=== PATIENT | female | born 1995 | race Caucasian/White ===

== ENCOUNTER 2021-07-31 17:30 | Emergency (ER) | payer BC ==
[2021-07-31 18:48] LABS: CORONAVIRUS COVID-19 NAA NEGATIVE (NEGATIVE); INFLUENZA A NAA NEGATIVE (NEGATIVE); INFLUENZA B NAA NEGATIVE (NEGATIVE)
[2021-07-31 18:49] LABS: BLOOD UREA NITROGEN,BUN 5 mg/dL (7.0-18.0); CARBON DIOXIDE,CO2 23.3 mmol/L (21.0-32.0); CHLORIDE,CL 103 mmol/L (98-107); GLUCOSE RANDOM 103 mg/dL (74-106); POTASSIUM,K 3.5 mmol/L (3.5-5.1); SODIUM,NA 137 mmol/L (136-145)
== END 2021-07-31 19:17 | disposition home or self-care (01) ==
LOC: MW.ED 17:30
DX: O23.42 Unspecified infection of urinary tract in pregnancy, second trimester (principal); N39.0 Urinary tract infection, site not specified; O99.512 Diseases of the respiratory system complicating pregnancy, second trimester; J06.9 Acute upper respiratory infection, unspecified; Z3A.14 14 weeks gestation of pregnancy; Z20.822 Contact with and (suspected) exposure to COVID-19
CPT/HCPCS: 0240U; 36415; 80053; 81001; 85025; 87086; 93005; 99285

== ENCOUNTER 2021-12-05 05:54 | Emergency (ER) | payer BC ==
[2021-12-05] MEDS ORDERED: Albuterol/Ipratropium 3.0-0.5 MG/3 ML Neb Soln NEB STA (06:03)
== END 2021-12-05 07:54 | disposition home or self-care (01) ==
LOC: MW.ED 05:54
DX: O98.513 Other viral diseases complicating pregnancy, third trimester (principal); U07.1 COVID-19; J45.901 Unspecified asthma with (acute) exacerbation; Z3A.32 32 weeks gestation of pregnancy
CPT/HCPCS: 93005; 93010; 99284; U0002

== ENCOUNTER 2022-01-11 16:08 | Inpatient (IN) | payer BC ==
[2022-01-11 18:23] LABS: POTASSIUM,K 3.5 mmol/L (3.5-5.1)
[2022-01-11] MEDS ORDERED: Terbutaline 1 MG/ML SDV SUBCUT PRN (18:39)
[2022-01-11] MEDS ORDERED: Sodium Chloride 0.9% 10 ML Syringe FLUSH PRN (18:39)
[2022-01-11] MEDS ORDERED: Water For Irrigation,Sterile 1,000 ML Container IRR PRN (18:39)
[2022-01-11] MEDS ORDERED: Misoprostol 25 MCG (1/4 of 100 MCG) Tab VAG PRN ×2 (18:39)
[2022-01-11] MEDS ORDERED: Ondansetron 4 MG/2 ML SDV IVPUSH PRN (18:39)
[2022-01-11] MEDS ORDERED: Sodium Chloride 0.9% 2.5 ML Syringe FLUSH PRN (18:39)
[2022-01-11] MEDS ORDERED: Misoprostol 200 MCG Tab PO PRN (18:39)
[2022-01-11] MEDS ORDERED: Tranexamic Acid 1,000 MG in Sodium Chloride 0.9% 100 ML IV PRN (18:39)
[2022-01-11] MEDS ORDERED: Methylergonovine 0.2 MG/1 ML Amp IM PRN (18:39)
[2022-01-11] MEDS ORDERED: Carboprost Tromethamine 250 MCG/1 ML Amp IM PRN (18:39)
[2022-01-11] MEDS ORDERED: Butorphanol 1 MG/ML SDV IVPUSH PRN (18:39)
[2022-01-11] MEDS ORDERED: Sodium Chloride 0.9% 20 ML SDV IV PRN (18:39)
[2022-01-11] MEDS ORDERED: Lidocaine 1% 50 ML MDV INJECT PRN (18:39)
[2022-01-11] MEDS ORDERED: Oxytocin/0.9 % Sodium Chloride 30 UNIT/500 ML BAG IV SCH ×2 (18:45)
[2022-01-11] MEDS: Lactated Ringers 1,000 ML IV SCH (20:05)
[2022-01-11] MEDS ORDERED: ePHEDrine 50 MG/ML SDV IVPUSH PRN ×2 (22:06)
[2022-01-11] MEDS ORDERED: Ropivacaine HCl/PF 400 MG in Premix Bag 1 BAG EPIDUR SCH (22:15)
[2022-01-12] MEDS ORDERED: NIFEdipine 10 MG Cap PO PRN (07:13)
[2022-01-12] MEDS: Lactated Ringers 1,000 ML IV SCH (09:00)
[2022-01-12] MEDS: NIFEdipine 30 MG Tab.ER PO SCH (09:00)
[2022-01-12] MEDS ORDERED: fentaNYL 100 MCG/2 ML SDV ONE (10:58)
[2022-01-12] MEDS ORDERED: Witch Hazel Medicated Pads 40/Jar TOP PRN (12:03)
[2022-01-12] MEDS ORDERED: Benzocaine/Menthol 20%-0.5% Spray 78 GM Cannister TOP PRN (12:03)
[2022-01-12] MEDS ORDERED: Bisacodyl 10 MG Supp RECTAL PRN (12:03)
[2022-01-12] MEDS ORDERED: Ibuprofen 400 MG Tab PO PRN (12:03)
[2022-01-12] MEDS ORDERED: oxyCODONE 5 MG Tab PO PRN (12:03)
[2022-01-12] MEDS ORDERED: Lanolin 100% Cream 7 GM Tube TOP PRN (12:03)
[2022-01-12] MEDS ORDERED: Acetaminophen 500 MG Tab PO PRN ×2 (12:03)
[2022-01-12] MEDS: Docusate Sodium 100 MG Cap PO PRN (15:59)
[2022-01-13] MEDS: Ibuprofen 800 MG Tab PO PRN ×2 (04:08→12:52)
[2022-01-13 06:26] LABS: CARBON DIOXIDE,CO2 23.9 mmol/L (21.0-32.0); POTASSIUM,K 3.5 mmol/L (3.5-5.1)
[2022-01-13] MEDS: Docusate Sodium 100 MG Cap PO PRN (09:03)
[2022-01-13] MEDS: NIFEdipine 30 MG Tab.ER PO SCH (09:03)
[2022-01-13] MEDS ORDERED: Measles, Mumps & Rubella Vaccine 0.5 ML SDV SUBCUT ONE (09:50)
== END 2022-01-13 17:30 | disposition home or self-care (01) | DRG 560 ==
LOC: MW.OB 16:08 → MW.OBCHECK 16:08 → MW.OB 19:01 → OBSVTOIN 01-12 12:03 → MW.OB 01-12 15:46
PROVIDERS: ADMIT Obstetrics & Gynecology; ATTEND Obstetrics & Gynecology
PROC: 10E0XZZ Delivery of Products of Conception, External Approach (ICD-10-PCS; principal; 2022-01-12)
PROC: 10907ZC Drainage of Amniotic Fluid, Therapeutic from Products of Conception, Via Natural or Artificial Opening (ICD-10-PCS; 2022-01-12)
PROC: 3E0R3BZ Introduction of Anesthetic Agent into Spinal Canal, Percutaneous Approach (ICD-10-PCS; 2022-01-12)
PROC: 00HU33Z Insertion of Infusion Device into Spinal Canal, Percutaneous Approach (ICD-10-PCS; 2022-01-12)
PROC: 30233N1 Transfusion of Nonautologous Red Blood Cells into Peripheral Vein, Percutaneous Approach (ICD-10-PCS; 2022-01-12)
DX: O11.4 Pre-existing hypertension with pre-eclampsia, complicating childbirth (principal); Z3A.37 37 weeks gestation of pregnancy; Z37.0 Single live birth; O99.52 Diseases of the respiratory system complicating childbirth; O10.92 Unspecified pre-existing hypertension complicating childbirth; O76 Abnormality in fetal heart rate and rhythm complicating labor and delivery; J45.909 Unspecified asthma, uncomplicated; Z86.16 Personal history of COVID-19
CPT/HCPCS: 01967; 36415; 59025; 59409; 80053; 81003; 82803; 84550; 85025; 85027; 85460; 86592; 86850; 86900; 86901; A9270-GY; J2590; J2790; J3010; J7120